=== PATIENT | female | born 1970 | race Caucasian/White ===

== ENCOUNTER 2019-08-09 11:52 | Emergency (ER) | payer MEDICAID, OTHER ==
[~2019-08-09] VITALS: Ht 160 cm; Wt 56.2 kg
[~2019-08-09 11:52] MED LIST: AMOX1TAB10 PO
[2019-08-09 12:26] VITALS: BP 105/57; PULSE 61; RESP 20; Ht 160 cm; Wt 56.2 kg
== END 2019-08-09 15:00 | disposition home or self-care (01) ==
LOC: FTE 11:52
DX: H66.002 Acute suppurative otitis media without spontaneous rupture of ear drum, left ear (principal)
CPT/HCPCS: 99283